=== PATIENT | female | born 1980 | race Caucasian/White ===

== ENCOUNTER 2018-05-28 20:25 | Emergency (ER) | payer SELFPAY ==
[2018-05-28 21:35] LABS: ABSOLUTE BASOPHILS # (AUTO) 0.1 10^3/uL (0.0-0.2); ABSOLUTE EOSINOPHILS # (AUTO) 0.2 10^3/uL (0.0-0.6); BASOPHILS % (AUTO) 0.9 % (0-2); TOTAL CELLS COUNTED % (AUTO) 100 %
[2018-05-28 21:40] LABS: ABSOLUTE LYMPHOCYTES (AUTO) 3.9 10^3/uL (0.5-4.7); ABSOLUTE MONOCYTES (AUTO) 0.5 10^3/uL (0.1-1.4); ABSOLUTE NEUT (AUTO) 4.1 10^3/uL (1.7-8.2); EOSINOPHILS % (AUTO) 2.6 % (0-6); HEMATOCRIT 37.9 % (36.0-47.0); HEMOGLOBIN 13.3 g/dL (12.0-15.5); LYMPHOCYTES % (AUTO) 44.2 % (13-45); MEAN CORPUSCULAR HEMOGLOBIN 33.4 pg (27.0-33.4); MEAN CORPUSCULAR VOLUME 96 fl (80-97); MONOCYTES % (AUTO) 5.9 % (3-13); PLATELET COUNT 341 10^3/uL (150-450); RED BLOOD COUNT 3.97 10^6/uL (3.72-5.28); SEGMENTED NEUTROPHILS % (AUTO) 46.4 % (42-78); WHITE BLOOD COUNT 8.8 10^3/uL (4.0-10.5)
[2018-05-28 21:46] LABS: APPEARANCE,URINE SLIGHTLY-CLOUDY; BILIRUBIN,URINE NEGATIVE (NEGATIVE); COLOR,URINE YELLOW; GLUCOSE, URINE NEGATIVE (NEGATIVE); KETONES,URINE NEGATIVE (NEGATIVE); LEUKOCYTE ESTERASE,URINE TRACE (NEGATIVE); NITRITE,URINE NEGATIVE (NEGATIVE); PROTEIN,URINE NEGATIVE (NEGATIVE); URINE SPECIFIC GRAVITY 1.014; UROBILINOGEN,URINE NEGATIVE mg/dL (<2.0)
[2018-05-28 21:53] LABS: ALANINE AMINOTRANSFERASE 13 U/L (9-52); ALBUMIN 4.4 g/dL (3.5-5.0); ALKALINE PHOSPHATASE 52 U/L (38-126); ANION GAP 13 (5-19); ASPARTATE AMINO TRANSFERASE 17 U/L (14-36); BILIRUBIN,DIRECT 0.2 mg/dL (0.0-0.4); BILIRUBIN,TOTAL 0.4 mg/dL (0.2-1.3); BLOOD UREA NITROGEN 10 mg/dL (7-20); CALCIUM 9.2 mg/dL (8.4-10.2); CARBON DIOXIDE 23 mmol/L (22-30); CHLORIDE 102 mmol/L (98-107); GLUCOSE 78 mg/dL (75-110); POTASSIUM 3.7 mmol/L (3.6-5.0); SODIUM 137.7 mmol/L (137-145); TOTAL PROTEIN 7.4 g/dL (6.3-8.2)
--- NOTE | 2018-05-28 22:43 | RADIOLOGY REPORT (SQ) ---
EXAM DESCRIPTION: US TRANSVAGINAL COMPLETED DATE/TME: 05/28/2018 21:11 CLINICAL HISTORY: 38 years, Female, 10wks, bleeding, cramps, no US COMPARISON: None. TECHNIQUE: Transverse and longitudinal transvaginal sonographic images of the pelvis LIMITATIONS: None. FINDINGS: The uterus measures 8.7 x 5.2 x 6.9 cm. There is an intrauterine gestational sac with yolk sac and pole. However, heart tones were not visualized. Current ultrasound age is 6 weeks 2 days based on mean sac diameter of 1.51 cm. The maternal left ovary is not well seen. The maternal right ovary measures 5 x 3 x 3 cm. Normal flow to the right ovary. No free fluid. No adnexal cyst or mass. IMPRESSION: Intrauterine gestational sac with pole and yolk sac however no detectable heart tones. Findings are concerning for demise. Close obstetric follow-up recommended. Correlate with beta hCG levels. Follow-up ultrasound may also be of benefit copyright 2011 [employer]- All Rights Reserved
--- NOTE | 2018-05-28 22:59 | ER Document Report ---
Entered by SUZANNA QUIÑONES SCRIBE 05/28/182118 Acting as scribe for:MEERA STEPHENSON MD ED General - General Chief Complaint: Vag Bleeding, +preg <12wks Stated Complaint: SPOTTING,CRAMPING Time Seen by Provider: 05/28/18 21:06 Mode of Arrival: Ambulatory Information source: Patient Notes: Patient is a 38 year old female, approximately 10 weeks presents to the emergency department complaining of vaginal bleeding and abdominal cramping onset yesterday. Patient states she began to have vaginal bleeding described as a bright red spotting with stringy clots. She states today, the bleeding turned dark brown and there was an increased amount. Patient describes her abdominal cramps as an intermittent dullness. Her last menstrual period was approximately March 18, 2018. Patient is A2. TRAVEL OUTSIDE OF THE [place] IN LAST 30 DAYS: No - Related Data Allergies/Adverse Reactions: No Known Allergies Allergy (Verified 05/28/18 21:17) Past Medical History - General Information source: Patient - Social History Smoking Status: Current Every Day Smoker Cigarette use (# per day): No - vapes Chew tobacco use (# tins/day): No Smoking Education Provided: No Frequency of alcohol use: None Drug Abuse: None Lives with: Family Family History: Reviewed & Not Pertinent Past Surgical History: Reports: Hx Orthopedic Surgery - ORIF of right ankle 04/2018 Review of Systems - Review of Systems Constitutional: No symptoms reported EENT: No symptoms reported Cardiovascular: No symptoms reported Respiratory: No symptoms reported Gastrointestinal: See HPI, Abdominal pain Female Genitourinary: See HPI, , Vaginal bleeding Musculoskeletal: No symptoms reported Skin: No symptoms reported Hematologic/Lymphatic: No symptoms reported Neurological/Psychological: No symptoms reported -: Yes All other systems reviewed and negative Physical Exam - Vital signs Vitals: Temp Pulse Resp BP Pulse Ox 98.5 F 86 16 115/72 99 05/28/18 20:32 05/28/18 20:32 05/28/18 20:32 05/28/18 20:32 05/28/18 20:32 - Notes Notes: GENERAL: Alert, interacts well. No acute distress. HEAD: Normocephalic, atraumatic. EYES: Pupils equal, round, and reactive to light. Extraocular movements intact. ENT: Oral mucosa moist, tongue midline. NECK: Full range of motion. Supple. Trachea midline. LUNGS: Clear to auscultation bilaterally, no wheezes, rales, or rhonchi. No respiratory distress. HEART: Regular rate and rhythm. No murmurs, gallops, or rubs. ABDOMEN: Soft, non-tender. Non-distended. Bowel sounds present in all 4 quadrants. No guarding, rigidity, or rebound. EXTREMITIES: Moves all 4 extremities spontaneously. Well healed incisions around right ankle, consistent with surgical history. Good sensations. NEUROLOGICAL: Alert and oriented x3. Normal speech. PSYCH: Normal affect, normal mood. SKIN: Warm, dry, normal turgor. No rashes or lesions noted. Course - Re-evaluation Re-evalutation: 05/28/18 22:30 The hCG level is 13,746. - Vital Signs Vital signs: Temp Pulse Resp BP Pulse Ox 98.5 F 86 16 115/72 99 05/28/18 20:32 05/28/18 20:32 05/28/18 20:32 05/28/18 20:32 05/28/18 20:32 - Laboratory Result Diagrams: 05/28/18 21:20 05/28/18 21:20 Laboratory results interpreted by me: 05/28/18 05/28/18 21:20 21:20 Beta HCG, Quant 49826.00 H Urine Blood LARGE H Ur Leukocyte Esterase TRACE H - Diagnostic Test Radiology reviewed: Reports reviewed - 6-week 2-day intrauterine with gestational sac, yolk sac, and pole. heartbeat is not seen. Discharge - Discharge Clinical Impression: with 6 completed weeks gestation, Vaginal bleeding during Condition: Stable Disposition: HOME, SELF-CARE Additional Instructions: Bleeding During Early You have been evaluated for passing blood while . While we take this symptom very seriously, most women with your degree of bleeding will go on to have a perfectly normal baby. At this time, there is no indication that a miscarriage will occur. (A miscarriage occurs when the fetus is abnormal. There is no medicine or treatment to prevent it.) A more serious cause of bleeding is tubal . An ultrasound can show whether the is in the uterus or in the tube. Sometimes in early , no fetus is seen. In this case, careful follow-up, including repeat blood tests and repeat ultrasound, is necessary. You should rest in bed until the symptoms have resolved. Do not douche or have sex for at least a week, or until OK'd by the doctor. Don't use tampons. Call the doctor or return for re-examination if there is an increase in bleeding or cramping, extreme weakness, fainting, new abdominal pain, fever, or passage of tissue. Your ultrasound shows a 6-week 2-day intrauterine , a heartbeat is not seen at this time. You should follow-up with the health department tomorrow for further evaluation. Take Tylenol for cramping if needed. RETURN TO THE EMERGENCY ROOM IF ANY NEW OR WORSENING SYMPTOMS. I personally performed the services described in the documentation, reviewed and edited the documentation which was dictated to the scribe in my presence, and it accurately records my words and actions.
[2018-05-28 23:32] VITALS: BP 109/67
== END 2018-05-28 23:49 | disposition home or self-care (01) ==
LOC: ER 20:25
DX: O46.91 Antepartum hemorrhage, unspecified, first trimester (principal); O26.891 Other specified pregnancy related conditions, first trimester; R10.9 Unspecified abdominal pain; O99.331 Smoking (tobacco) complicating pregnancy, first trimester; Z3A.01 Less than 8 weeks gestation of pregnancy
CPT/HCPCS: 99284; 96372; 86900; 86901; 36415; 86850; 84702; 85025; 80053; 81001; 76817; J2790

== ENCOUNTER 2018-08-07 13:09 | Emergency (ER) | payer MEDICAID ==
--- NOTE | 2018-08-07 13:54 | ER Document Report ---
ED Medical Screen (RME) - General Chief Complaint: Swelling of Lower Extremity Stated Complaint: SWELLING RIGHT LOWER EXTREMITY Time Seen by Provider: 08/07/18 13:43 Mode of Arrival: Ambulatory Information source: Patient Notes: Patient presents emergency department with right lower leg cellulitis. Patient reports she had an open fracture of her tibia in December with hardware repair. She reports Tuesday she went to the [facility]. Denies trauma. Denies open sores. Reports Tuesday she started getting the chills with fever body aches neck pain and noticed erythema around her ankle streaking up her right leg. Is unsure of fever took Excedrin at 1130. Patient right ankle with erythema warmth and streaks noted I have greeted and performed a rapid initial assessment of this patient. A comprehensive ED assessment and evaluation of the patient, analysis of test results and completion of the medical decision making process will be conducted by additional ED providers. Dictation of this chart was performed using voice recognition software; therefore, there may be some unintended grammatical errors. TRAVEL OUTSIDE OF THE [place] IN LAST 30 DAYS: No - Related Data Allergies/Adverse Reactions: No Known Allergies Allergy (Verified 05/28/18 21:17) Past Medical History Renal/ Medical History: Denies: Hx Peritoneal Dialysis Past Surgical History: Reports: Hx Orthopedic Surgery - ORIF of right ankle 04/2018 Physical Exam - Vital signs Vitals: Temp Pulse Resp BP Pulse Ox 99.1 F 95 16 116/70 99 08/07/18 13:12 08/07/18 13:12 08/07/18 13:12 08/07/18 13:12 08/07/18 13:12 Course - Vital Signs Vital signs: Temp Pulse Resp BP Pulse Ox 99.1 F 95 16 116/70 99 08/07/18 13:12 08/07/18 13:12 08/07/18 13:12 08/07/18 13:12 08/07/18 13:12
[2018-08-07 14:33] LABS: ABSOLUTE LYMPHOCYTES (AUTO) 1.3 10^3/uL (0.5-4.7); ABSOLUTE MONOCYTES (AUTO) 0.4 10^3/uL (0.1-1.4); ABSOLUTE NEUT (AUTO) 11.8 10^3/uL (1.7-8.2); BASOPHILS % (AUTO) 0.4 % (0-2); EOSINOPHILS % (AUTO) 0.1 % (0-6); HEMATOCRIT 42.5 % (36.0-47.0); HEMOGLOBIN 14.6 g/dL (12.0-15.5); LYMPHOCYTES % (AUTO) 9.3 % (13-45); MEAN CORPUSCULAR HEMOGLOBIN 32.9 pg (27.0-33.4); MEAN CORPUSCULAR HGB CONC 34.4 g/dL (32.0-36.0); MEAN CORPUSCULAR VOLUME 96 fl (80-97); PLATELET COUNT 317 10^3/uL (150-450); RED BLOOD COUNT 4.45 10^6/uL (3.72-5.28); RED CELL DISTRIBUTION WIDTH 12.9 % (11.5-14.0); SEGMENTED NEUTROPHILS % (AUTO) 87.2 % (42-78); TOTAL CELLS COUNTED % (AUTO) 100 %; WHITE BLOOD COUNT 13.5 10^3/uL (4.0-10.5)
--- NOTE | 2018-08-07 14:43 | RADIOLOGY REPORT (SQ) ---
EXAM DESCRIPTION: ANKLE RIGHT COMPLETE COMPLETED DATE/TIME: 08/07/2018 2:33 pm REASON FOR STUDY: pain, cellulitis, hx fx hardware COMPARISON: None. NUMBER OF VIEWS: Three views. TECHNIQUE: AP, lateral, and oblique radiographic images acquired of the right ankle. LIMITATIONS: None. FINDINGS: MINERALIZATION: Normal. BONES: Distal right fibula internal fixation with metallic plate and five screws. No radiographic e vidence of loosening or infection. Non-united distal fibula fracture. JOINTS: No effusions. SOFT TISSUES: No soft tissue swelling. No foreign body. OTHER: No other significant finding. IMPRESSION: 1. Post surgical changes with hardware distal fibula. Non-united distal fibula fractur e. TECHNICAL DOCUMENTATION: JOB ID: [id number] [employer]- All Rights Reserved Reading location - IP/workstation name: [email or web address]
[2018-08-07 14:54] LABS: ALANINE AMINOTRANSFERASE 17 U/L (9-52); ALBUMIN 4.7 g/dL (3.5-5.0); ALKALINE PHOSPHATASE 58 U/L (38-126); ANION GAP 13 (5-19); ASPARTATE AMINO TRANSFERASE 17 U/L (14-36); BILIRUBIN,DIRECT 0.2 mg/dL (0.0-0.4); BILIRUBIN,TOTAL 0.6 mg/dL (0.2-1.3); BLOOD UREA NITROGEN 10 mg/dL (7-20); CALCIUM 9.3 mg/dL (8.4-10.2); CARBON DIOXIDE 26 mmol/L (22-30); CHLORIDE 101 mmol/L (98-107); GLUCOSE 90 mg/dL (75-110); POTASSIUM 3.8 mmol/L (3.6-5.0); TOTAL PROTEIN 7.9 g/dL (6.3-8.2)
--- NOTE | 2018-08-07 15:57 | ER Document Report ---
ED Extremity Problem, Lower - General Chief Complaint: Swelling of Lower Extremity Stated Complaint: SWELLING RIGHT LOWER EXTREMITY Time Seen by Provider: 08/07/18 13:43 Primary Care Provider: [facility] [Provider Group] - Follow up as needed [facility] [Provider Group] - Follow up as needed Mode of Arrival: Ambulatory Information source: Patient Notes: 38-year-old female presented to ED for complaint of right lower leg cellulitis. She states she had an open fracture of the tibia in December and had surgical repair. She states Tuesday she went to the [facility]. She states Tuesday she started getting chills and fever body aches neck pain and noticed erythema around her ankle streaking up her right leg. Patient states she is not sure if she has had any fever she did take Excedrin at 1130. Patient's right ankle is warm erythematous and tender to palpation. Patient is alert oriented respirations regular and unlabored speaking in full sentences walks with a limp due to pain. TRAVEL OUTSIDE OF THE [place] IN LAST 30 DAYS: No - HPI Patient complains to provider of: Pain, Swelling, Other Location: Ankle - Erythematous, Leg Occurred: Other Onset/Duration: Gradual - Started Tuesday Quality of pain: Achy Severity: Moderate Pain Level: 4 Recent injury: No Associated symptoms: Painful ambulation Exacerbated by: Hanging down, Movement, Walking Relieved by: Nothing - Related Data Allergies/Adverse Reactions: No Known Allergies Allergy (Verified 05/28/18 21:17) Past Medical History - General Information source: Patient - Social History Smoking Status: Current Every Day Smoker - vapor cigerattte Chew tobacco use (# tins/day): No Frequency of alcohol use: Rare Drug Abuse: None 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 [employer] Lives with: Family Family History: Reviewed & Not Pertinent Patient has suicidal ideation: No Patient has homicidal ideation: No - Past Medical History Cardiac Medical History: Reports: None Pulmonary Medical History: Reports: None EENT Medical History: Reports: None Neurological Medical History: Reports: None Endocrine Medical History: Reports: None Renal/ Medical History: Reports: Hx Ovarian Cysts - 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 Malignancy Medical History: Reports: None GI Medical History: Reports: None Musculoskeletal Medical History: Reports Hx Musculoskeletal Trauma Skin Medical History: Reports Hx Cellulitis Psychiatric Medical History: Reports: None Traumatic Medical History: Reports: Hx Fractures - Ankle right Infectious Medical History: Reports: None Past Surgical History: Reports: Hx Gynecologic Surgery - Left ovary and fallopian tube removed for ovarian torsion, Hx Orthopedic Surgery - ORIF of right ankle 04/2018 - Immunizations Immunizations up to date: Yes Hx Diphtheria, Pertussis, Tetanus Vaccination: Yes Review of Systems - Review of Systems Constitutional: No symptoms reported EENT: No symptoms reported Cardiovascular: No symptoms reported Respiratory: No symptoms reported Gastrointestinal: No symptoms reported Genitourinary: No symptoms reported Female Genitourinary: No symptoms reported Musculoskeletal: Leg swelling - Right lower leg pain swelling fever Skin: Change in color - Erythema to right lower leg and ankle Hematologic/Lymphatic: No symptoms reported Neurological/Psychological: No symptoms reported -: Yes All other systems reviewed and negative Physical Exam - Vital signs Vitals: Temp Pulse Resp BP Pulse Ox 99.1 F 95 16 116/70 99 08/07/18 13:12 08/07/18 13:12 08/07/18 13:12 08/07/18 13:12 08/07/18 13:12 Interpretation: Normal - General General appearance: Appears well, Alert - HEENT Head: Normocephalic, Atraumatic Eyes: Normal Pupils: PERRL - Respiratory Respiratory status: No respiratory distress Chest status: Nontender Breath sounds: Normal Chest palpation: Normal - Cardiovascular Rhythm: Regular Heart sounds: Normal auscultation Murmur: No - Abdominal Inspection: Normal Distension: No distension Bowel sounds: Normal Tenderness: Nontender Organomegaly: No organomegaly - Back Back: Normal, Nontender - Extremities General upper extremity: Normal inspection, Nontender, Normal color, Normal ROM, Normal temperature General lower extremity: Normal ROM, Normal weight bearing. No: Ondina's sign Calf: Tender - Pain with and without palpation to the right ankle and lower leg, Other - Erythematous minimal swelling scars from previous ORIF right ankle Ankle: Tender - Erythematous, Edema - Pain to the right ankle with and without palpation - Neurological Neuro grossly intact: Yes Cognition: Normal Orientation: AAOx4 [place] Coma Scale Eye Opening: Spontaneous [place] Coma Scale Verbal: Oriented Jb Coma Scale Motor: Obeys Commands [place] Coma Scale Total: 15 Speech: Normal Motor strength normal: LUE, RUE, LLE, RLE Sensory: Normal - Psychological Associated symptoms: Normal affect, Normal mood - Skin Skin Temperature: Warm Skin Moisture: Dry Skin Color: Normal Course - Re-evaluation Re-evalutation: 08/07/18 16:15 Discussed labs exam and x-rays with Dr. Boss. We will treat patient her r ecommendation with Keflex and Bactrim. She will receive a dose of Bactrim and Rocephin in the emergency patient to follow-up with her primary care and the orthopedic to did the surgery. Patient states she will call the orthopedic surgeon tomorrow at [facility] as they are the ones did the surgery I will also give her a local orthopedic to follow-up with if they cannot see her. She verbalized understanding and agreement with treatment plan and patient was discharged home - Vital Signs Vital signs: Temp Pulse Resp BP Pulse Ox 98.5 F 86 16 117/52 L 100 08/07/18 16:20 08/07/18 16:20 08/07/18 16:20 08/07/18 16:20 08/07/18 16:20 - Laboratory Result Diagrams: 08/07/18 14:02 08/07/18 14:02 Laboratory results interpreted by me: 08/07/18 14:02 WBC 13.5 H Seg Neutrophils % 87.2 H Lymphocytes % 9.3 L Absolute Neutrophils 11.8 H - Diagnostic Test Radiology reviewed: Image reviewed, Reports reviewed Discharge - Discharge Clinical Impression: Cellulitis of right ankle Condition: Stable Disposition: HOME, SELF-CARE Additional Instructions: CELLULITIS: You have an infection of your skin and underlying soft tissues called cellulitis. This is due to bacteria, which can enter through any break in the skin, or even through an irritated hair follicle. Untreated, cellulitis will usually worsen. Antibiotics are required. Usually, warm packs or warm soaks, and elevation of the infected area are recommended. You should start getting better within 24 to 36 hours. Most infections respond quickly to the right medication. Follow-up care is important, however, to check for abscess (boil) formation, unsuspected foreign body, or resistant infection. If you develop fever, chills, or if the area of infection is becoming rapidly more swollen or painful, call the doctor at once. TRIMETHOPRIM-SULFA: You have been given a prescription for trimethoprim-sulfa (TMS, Septra, Bactrim). This is a combination antibiotic of the sulfa class, often used for urinary tract infections, middle ear infections, bronchitis, shigella intestinal infection, and Pneumocystis pneumonia. TMS is usually well-tolerated. Occasional side effects include nausea and decreased appetite. Septra is not recommended for infants less than two months of age. Do not take this medication if you have experienced severe side effects or allergy to sulfa medicine. You should stop this medicine at once and contact your physician if you develop any rash, joint pain, shortness of breath, bruising, or jaundice (yellow color in the skin), or if you develop any other new or unusual symptoms. Cephalexin The antibiotic you've been prescribed is a member of the cephalosporin class. This type of antibiotic covers a wide variety of infections, including those of the skin, lungs, and urinary tract. It's useful for staph infections. This antibiotic is slightly similar to the penicillin family. In rare cases, a person who is allergic to penicillin will also be allergic to this medication. If you have had a severe allergic reaction to penicillin, and have not taken this antibiotic since that time, notify your doctor. Antibiotics which cover many germs ("broad spectrum" antibiotics) are more likely to cause diarrhea or "yeast" infections. Women prone to vaginal yeast problems may suffer an attack after taking this antibiotic. In infants, oral thrush (white spots "stuck" on the cheek) or yeast diaper rash may result. See your doctor if these problems occur. Call at once if you develop itching, hives, shortness of breath, or lightheadedness. Rocephin You have been given an injection of an antibiotic called Rocephin (ceftriaxone). Sometimes the injection must be combined with antibiotic pills. For some infections, such as an uncomplicated ear infection, Rocephin provides all the antibiotic that's needed. The antibiotic will be in your body for about two days. For serious infections, we usually repeat doses of Rocephin daily. Side effects are very unusual following a shot. Women may develop vaginal yeast infections, and babies can get yeast (thrush) in the mouth following the use of antibiotics. Contact your physician if you have symptoms with this medication. Allergy to this antibiotic can result in hives, wheezing, faintness, or itching. If symptoms of allergy occur, call the doctor at once. FOLLOW-UP CARE: If you have been referred to a physician for follow-up care, call the physicians office for an appointment as you were instructed or within the next two days. If you experience worsening or a significant change in your symptoms, notify the physician immediately or return to the Emergency Department at any time for re-evaluation. Take your x-rays and lab results with you to your follow-up appointment with orthopedics. You stated you would call the [facility]opedic [facility] tomorrow. If they cannot see you within the next 24-48 hrs. please follow-up with the local drilling fluids specialist or your primary care. Prescriptions: Cephalexin Monohydrate [Keflex 500 mg Capsule] 500 mg PO QID #28 capsule Sulfamethoxazole/Trimethoprim [Bactrim Ds Tablet] 1 each PO BID #14 tablet Forms: Smoking Cessation Education Referrals: [facility] [Provider Group] - Follow up as needed [facility] [Provider Group] - Follow up as needed
[2018-08-07] MEDS ORDERED: SULFAMETHOXAZOLE/TRIMETHOPRIM 800-160 MG TABLET PO ONE (16:08)
[2018-08-07] MEDS ORDERED: CEFTRIAXONE 1 GM/D5W RTU 1 GM/50 ML RTUPB IV ONE (16:08)
[2018-08-07] MEDS ORDERED: IBUPROFEN 400 MG TABLET PO ONE (16:09)
[2018-08-07 16:24] VITALS: BP 117/52
== END 2018-08-07 17:06 | disposition home or self-care (01) ==
LOC: ER 13:09
DX: L03.115 Cellulitis of right lower limb (principal); F17.290 Nicotine dependence, other tobacco product, uncomplicated
CPT/HCPCS: 99283; 96365; 36415; 87040; 84703; 85025; 80053; 83605; 73610; J3490 ×2; J0696

== ENCOUNTER 2018-09-26 18:20 | Emergency (ER) | payer MEDICAID ==
[2018-09-26 18:26] VITALS: BP 117/74
== END 2018-09-26 22:00 | disposition left against medical advice (07) ==
LOC: ER 18:20
DX: Z53.21 Procedure and treatment not carried out due to patient leaving prior to being seen by health care provider (principal)

== ENCOUNTER → 2019-02-27 | Outpatient (CLI) | payer MEDICAID ==
--- NOTE | 2019-02-27 10:44 | RADIOLOGY REPORT (SQ) ---
EXAM DESCRIPTION: U/S [id number] TRNABD 1GES W/ODOP COMPLETED DATE/TIME: 02/27/2019 9:44 am REASON FOR STUDY: ENCOUNTER FOR SUPRVSN OF NORMAL , FIRST TRIMESTER Z34.81 ENCOUNTER FOR S UPRVSN OF NORMAL , FIRST TRIM COMPARISON: 05/28/2018 TECHNIQUE: Transabdominal static and realtime grayscale images acquired of the pelvis. Additional se lected spectral and color Doppler images recorded. All images stored on PACs. CG: Not available. CLINICAL DATES: 12 weeks 0 days. LIMITATIONS: None. FINDINGS: FETUS: Single Living intrauterine . ULTRASOUND EGA: 10 weeks 6 days. ULTRASOUND LIZZIE: 09/19/2019 EFW: Not applicable less than 20 weeks. CRL: 3.95 cm. FHR: 173 beats per minute. SURVEY: Too early to assess. AMNIOTIC FLUID: Adequate amount. PLACENTA: Not yet developed due to early gestation. SUBCHORIONIC BLEED: Yes SIZE OF BLEED: 9 x 8 x 20 mm. UTERUS: No masses. No anomalies. CERVICAL LENGTH: 2.3 cm. Closed. RIGHT ADNEXA: Normal ovary with normal vascular flow. No adnexal free fluid. No adnexal masses. LEFT ADNEXA: Normal ovary with normal vascular flow. No adnexal free fluid. No adnexal masses. FREE FLUID: None. OTHER: No other significant finding. IMPRESSION: LIVING INTRAUTERINE . EGA 10 WEEKS 6 DAYS. THERE IS A SMALL SUBCHRONIC BLEED. Trimester of : First trimester - 0 to 13 weeks. TECHNICAL DOCUMENTATION: JOB ID: [id number] [employer]- All Rights Reserved Reading location - IP/workstation name: [email or web address]
== END ==
LOC: RAD 09:17
PROVIDERS: ATTEND Midwife
DX: O20.9 Hemorrhage in early pregnancy, unspecified (principal); Z3A.10 10 weeks gestation of pregnancy
CPT/HCPCS: 76801

== ENCOUNTER 2019-07-23 09:00 | Outpatient (CLI) | payer MEDICAID ==
[2019-07-23 09:55] LABS: APPEARANCE,URINE CLEAR; BILIRUBIN,URINE NEGATIVE (NEGATIVE); COLOR,URINE STRAW; GLUCOSE, URINE NEGATIVE (NEGATIVE); KETONES,URINE NEGATIVE (NEGATIVE); LEUKOCYTE ESTERASE,URINE NEGATIVE (NEGATIVE); NITRITE,URINE NEGATIVE (NEGATIVE); PROTEIN,URINE NEGATIVE (NEGATIVE); URINE SPECIFIC GRAVITY 1.003; UROBILINOGEN,URINE NEGATIVE mg/dL (<2.0)
[2019-07-23 10:10] LABS: URINE AMPHETAMINES SCREEN NEGATIVE; URINE BENZODIAZEPINES SCREEN NEGATIVE; URINE COCAINE SCREEN NEGATIVE; URINE MARIJUANA (THC) SCREEN NEGATIVE; URINE METHADONE SCREEN NEGATIVE; URINE PHENCYCLIDINE SCREEN NEGATIVE
--- NOTE | 2019-07-23 10:11 | Non Stress Test Report ---
Non Stress Test Datetime Report Generated by CPN: 07/23/2019 10:10 DEMOGRAPHIC Test Number: 1 EGA NST: 32.6 INDICATION Indication for Study (NST) Other: Labor Check VITAL SIGNS Temperature - NST: 98.6 Pulse - NST: 84 RESP - NST: 18 NBPSYS NST: 114 NBPDIA NST: 62 MONITORING Monitor Explained: Monitor Explained; Test Explained Time on Monitor: 07/23/2019 09:20 Time off Monitor: 07/23/2019 10:08 NST Duration: 48 NST INTERVENTIONS NST Interventions: PO Hydration; Reposition Patient Physician Notified NST: A. Calabrese, CNM BABY A: [id number] BABY A Movement : Present; Decreased Contraction Frequency : 0 FHR Baseline : 145 Accelerations : 15X15 Decelerations : None Variability : Moderate 6-25bpm NST Review: Meets Criteria for Reactive NST NST Review and Verified By : Tabby Camp RNC NST Results: Reactive NST COMMENTS NST Comments: A. Calabrese, cnm on unit and strip reviewed NST REPORT Report Trigger: Send Report
[2019-07-23 10:18] LABS: URINE BARBITURATES SCREEN NEGATIVE
== END 2019-07-23 10:22 | disposition home or self-care (01) ==
LOC: LC 09:00
PROVIDERS: ATTEND Obstetrics & Gynecology
DX: O36.8130 Decreased fetal movements, third trimester, not applicable or unspecified (principal); O09.523 Supervision of elderly multigravida, third trimester; Z3A.32 32 weeks gestation of pregnancy
CPT/HCPCS: 80307; 81001

== ENCOUNTER 2019-08-01 17:42 | Inpatient (IN) | payer MEDICAID ==
[2019-08-01 18:19] LABS: APPEARANCE,URINE SLIGHTLY-CLOUDY; BILIRUBIN,URINE NEGATIVE (NEGATIVE); COLOR,URINE YELLOW; GLUCOSE, URINE NEGATIVE (NEGATIVE); KETONES,URINE NEGATIVE (NEGATIVE); LEUKOCYTE ESTERASE,URINE LARGE (NEGATIVE); NITRITE,URINE NEGATIVE (NEGATIVE); PROTEIN,URINE NEGATIVE (NEGATIVE); UROBILINOGEN,URINE NEGATIVE mg/dL (<2.0)
[2019-08-01 18:28] LABS: URINE AMPHETAMINES SCREEN NEGATIVE; URINE BARBITURATES SCREEN NEGATIVE; URINE BENZODIAZEPINES SCREEN NEGATIVE; URINE COCAINE SCREEN NEGATIVE; URINE METHADONE SCREEN NEGATIVE; URINE PHENCYCLIDINE SCREEN NEGATIVE
[2019-08-01 18:41] LABS: URINE MARIJUANA (THC) SCREEN UNCONFIRMED POSITIVE
[2019-08-01] MEDS ORDERED: PENICILLIN G-K 5 MILLION UNIT VIAL ONE ×2 (18:43→22:53)
[2019-08-01] MEDS ORDERED: AMPICILLIN SOD INJ 2 GM VIAL ONE (18:43)
[2019-08-01] MEDS ORDERED: BETAMET ACET/BETAMET NA INJ 6 MG/1 ML IM ONE (18:44)
[2019-08-01] MEDS ORDERED: AMPICILLIN SOD INJ 2 GM VIAL IV ONE (18:45)
[2019-08-01] MEDS ORDERED: MAGNESIUM SULFATE 4 GM/100 ML RTUPB IV ONE ×3 (18:50→19:11)
[2019-08-01] MEDS ORDERED: PENICILLIN G POTASSIUM 5,000,000 UNIT in DEXTROSE 5%-WATER 100 ML IV ONE (18:53)
[2019-08-01] MEDS ORDERED: BETAMET ACET/BETAMET NA INJ 6 MG/1 ML ONE (18:54)
[2019-08-01] MEDS ORDERED: MAGNESIUM SULFATE 20 GM/500 ML RTUINJ IV ONE (19:11)
[2019-08-01 19:23] LABS: ABSOLUTE BASOPHILS # (AUTO) 0.1 10^3/uL (0.0-0.2); ABSOLUTE EOSINOPHILS # (AUTO) 0.2 10^3/uL (0.0-0.6); ABSOLUTE LYMPHOCYTES (AUTO) 3.5 10^3/uL (0.5-4.7); ABSOLUTE MONOCYTES (AUTO) 0.6 10^3/uL (0.1-1.4); BASOPHILS % (AUTO) 0.5 % (0-2); EOSINOPHILS % (AUTO) 1.4 % (0-6); HEMATOCRIT 32.8 % (36.0-47.0); HEMOGLOBIN 11.9 g/dL (12.0-15.5); LYMPHOCYTES % (AUTO) 22.7 % (13-45); MEAN CORPUSCULAR HEMOGLOBIN 33.9 pg (27.0-33.4); MEAN CORPUSCULAR HGB CONC 36.4 g/dL (32.0-36.0); MEAN CORPUSCULAR VOLUME 93 fl (80-97); MONOCYTES % (AUTO) 3.7 % (3-13); PLATELET COUNT 373 10^3/uL (150-450); RED BLOOD COUNT 3.52 10^6/uL (3.72-5.28); RED CELL DISTRIBUTION WIDTH 12.6 % (11.5-14.0); SEGMENTED NEUTROPHILS % (AUTO) 71.7 % (42-78); TOTAL CELLS COUNTED % (AUTO) 100 %; WHITE BLOOD COUNT 15.4 10^3/uL (4.0-10.5)
[2019-08-01] MEDS: MAGNESIUM SULFATE 20 GM/500 ML RTUINJ IV PRN (19:53)
--- NOTE | 2019-08-01 20:06 | RADIOLOGY REPORT (SQ) ---
EXAM DESCRIPTION: U/S OB LIMITED IMAGES COMPLETED DATE/TIME: 08/01/2019 7:56 pm REASON FOR STUDY: Confirm Presentation COMPARISON: None. TECHNIQUE: Limited transabdominal grayscale ultrasound for evaluation of specific requested obstetri alfredo parameters. LIMITATIONS: None. FINDINGS: CERVICAL LENGTH: 2.7 cm. Closed. SHANTA: 8.6 cm. Cm. FHR: 134 beats per minute. PRESENTATION: Cephalic. PLACENTA: Not assessed ANATOMY: Not assessed OTHER: Intrauterine gestation of 32 weeks 6 days. IMPRESSION: Cephalic lie. Findings as described. Trimester of : Third trimester - 28 weeks to delivery. TECHNICAL DOCUMENTATION: JOB ID: [id number] 2010 [employer]- All Rights Reserved Reading location - IP/workstation name: [email or web address]
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
[2019-08-01] MEDS: PENICILLIN G POTASSIUM 2,500,000 UNIT in DEXTROSE 5%-WATER 50 ML IV SCH (23:01)
[2019-08-02] MEDS ORDERED: PENICILLIN G-K 5 MILLION UNIT VIAL ONE ×2 (03:00→07:00)
[2019-08-02] MEDS: PENICILLIN G POTASSIUM 2,500,000 UNIT in DEXTROSE 5%-WATER 50 ML IV SCH ×3 (03:09→10:56)
[2019-08-02] MEDS ORDERED: MISOPROSTOL 0.2 MG TABLET ONE (04:23)
[2019-08-02] MEDS ORDERED: OXYTOCIN 10 UNIT/ML VIAL ONE (04:23)
[2019-08-02] MEDS ORDERED: LIDOCAINE 1% INJ-PF (10 MG/ML) 30 ML SDV ONE (04:23)
[2019-08-02] MEDS ORDERED: OXYTOCIN/0.9 % SODIUM CHLORIDE 30 UNIT/500 ML RTUINJ ONE (04:24)
[2019-08-02] MEDS ORDERED: FENTANYL/BUPIVACAINE/NS/PF 0 MCG/0 ML RTUINJ EPI ONE (04:55)
[2019-08-02] MEDS ORDERED: EPHEDRINE SULFATE INJ 50 MG/1 ML AMPULE ONE (04:55)
[2019-08-02] MEDS ORDERED: BUPIVACAINE HCL 0.25 % INJ/PF (2.5 MG/1 ML) 30 ML VIAL ONE (04:55)
[2019-08-02] MEDS ORDERED: MAGNESIUM SULFATE 20 GM/500 ML RTUINJ IV ONE (05:40)
[2019-08-02] MEDS: MAGNESIUM SULFATE 20 GM/500 ML RTUINJ IV PRN (05:44)
[2019-08-02] MEDS ORDERED: BETAMET ACET/BETAMET NA INJ 6 MG/1 ML ONE (07:00)
[2019-08-02] MEDS ORDERED: BETAMET ACET/BETAMET NA INJ 6 MG/1 ML IM ONE (07:00)
[2019-08-02] MEDS ORDERED: ACETAMINOPHEN 325 MG TABLET ONE (08:14)
[2019-08-02] MEDS ORDERED: ACETAMINOPHEN 325 MG TABLET PO ONE (08:26)
[2019-08-02] MEDS ORDERED: OXYTOCIN/0.9 % SODIUM CHLORIDE 30 UNIT/500 ML RTUINJ IV PRN ×2 (09:41→12:13)
[2019-08-02 09:46] LABS: CHLAM PCR NOT DETECTED (NOT DETECT)
[2019-08-02] MEDS ORDERED: PSEUDOEPHEDRINE HCL 30 MG TABLET PO PRN (12:13)
[2019-08-02] MEDS ORDERED: PROMETHAZINE HCL 25 MG SUPP.RECT PR PRN (12:13)
[2019-08-02] MEDS ORDERED: MEASLES,MUMPS&RUBELLA VACC/PF 0.5 ML VIAL SUBCUT PRN ×2 (12:13→15:30)
[2019-08-02] MEDS ORDERED: DIPH/PERTUSS(ACELL)/TETANUS VAC/PF 0.5 ML SYR (>=10YO) IM PRN ×2 (12:13→15:30)
[2019-08-02] MEDS ORDERED: DIPHENHYDRAMINE HCL 25 MG CAPSULE PO PRN (12:13)
[2019-08-02] MEDS ORDERED: NA PHOS,M-B/NA PHOS,DI-BA (ADULT) 133 ML ENEMA PR PRN (12:13)
[2019-08-02] MEDS ORDERED: PROMETHAZINE HCL INJ 25 MG/1 ML VIAL IV PRN ×2 (12:13→15:30)
[2019-08-02] MEDS ORDERED: MAGNESIUM HYDROXIDE SUSP 30 ML UDCUP PO PRN (12:13)
[2019-08-02] MEDS ORDERED: GLYCERIN/WITCH HAZEL LEAF 1 EACH MED..WIPE TP PRN (12:13)
[2019-08-02] MEDS ORDERED: PROMETHAZINE HCL 25 MG TABLET PO PRN (12:13)
[2019-08-02] MEDS ORDERED: DIBUCAINE 1% OINTMENT 28 GM TP PRN (12:13)
[2019-08-02] MEDS ORDERED: BENZOCAINE/MENTHOL AEROSOL SPRAY 56 ML TOP PRN (12:13)
[2019-08-02] MEDS ORDERED: IBUPROFEN 800 MG TABLET ONE (12:30)
[2019-08-02] MEDS ORDERED: BUTALB/ACETAMINOPHEN/CAFFEINE 1 TAB EACH PO ONE (13:11)
[2019-08-02] MEDS ORDERED: BUTALB/ACETAMINOPHEN/CAFFEINE 1 TAB EACH ONE (13:14)
--- NOTE | 2019-08-02 13:57 | Delivery Summary ---
Del Sum A-C Datetime Report Generated by CPN: 08/02/2019 13:56 DELIVERY PERSONNEL DELIVERY PERSONNEL: [id number] Delivery Doctor:: Anamika Arriaga CNM Labor and Delivery Nurse:: Kinza Mccord RNcut lace machine operator Nurse:: Fantasma Cee RN Nursery Nurse:: ART Garcia Tech/UNDERGROUND HEAVY EQUIPMENT OPERATOR: Vivian Cobian RN MATERNAL INFORMATION Delivery Anesthesia: None Medications After Delivery: Pitocin Bolus-Please Comment; Cytotec 1000mcg Per Rectum/Vagina Delivery QBL: 610 Delivery QBL Comment: 610 Maternal Complications: Premature Rupture of Membranes Provider Comments: pt quickly progressed to c/c/2 with urge to push, began pushing and quickly delivered a viable baby boy. Baby delivered thru loose nuchal x1 and had vigorous respiratory effort and cry spontaneously at . Baby placed on maternal abdomen, cord allowed to stop pulsating then clamped x2 and cut by pt's daugther (3vc noted, cord blood collected). Large bleeding noted with several large clots. Fundus firm with massage, bleeding stabilized. Vaginal and perineal inspection revealed no lacerations, cytotec 1000mcg placed rectally for phophylaxis. Mother and baby skin to skin prior to transfer to NICU due to gestational age. Pt remains stable at this time. LABOR SUMMARY EDC: 09/19/2019 00:00 No. Babies in Womb: 1 Attempted: No Labor Anesthesia: None LABOR INFORMATION Reason for Induction: Not Applicable Onset of Labor: 08/01/2019 16:00 Complete Dilatation: 08/02/2019 11:45 Oxytocin: Augmentation Group B Beta Strep: Unknown Antibiotics # of Doses: 5 Antibiotics Time of Last Dose: 1100 Name of Antibiotic Given: PCN Steroids Given: Full Course Reason Steroids Not Administered: Indication MEMBRANES Membranes Rupture Method: Artificial Rupture of Membranes: 08/01/2019 16:00 Length of Rupture (hr): 19.90 Amniotic Fluid Color: Clear Amniotic Fluid Amount: Small Amniotic Fluid Odor: Normal STAGES OF LABOR Stage 1 hr: 19 Stage 1 min: 45 Stage 2 hr: 0 Stage 2 min: 9 Stage 3 hr: 0 Stage 3 min: 5 Total Time in Labor hr: 19 Total Time in Labor min: 59 VAGINAL DELIVERY Episiotomy: None Laceration #1: None Laceration Extension #1: N/A Laceration Repair: Not Applicable Sponge Count Correct: N/A Sharps Count Correct: N/A CSECTION DELIVERY Primary Indication: N/A Secondary Indication: N/A CSection Incidence: N/A Labor: N/A Elective: N/A CSection Incision: N/A BABY A INFORMATION Infant Delivery Date/Time: 08/02/2019 11:54 Method of Delivery: Vaginal Nurse Controlled Delivery: No Born in Route : No : N/A Forceps: N/A Vacuum Extraction: N/A Shoulder Dystocia : No PRESENTATION/POSITION BABY A Presentation: Cephalic Cephalic Presentation: Vertex Vertex Position: Left Occipital Anterior Breech Presentation: N/A PLACENTA INFORMATION BABY A Placenta Delivery Time : 08/02/2019 11:59 Placenta Method of Delivery: Spontaneous Placenta Status: Delivered SCORES BABY A Heart Rate 1 min: >100 bpm Resp Effort 1 min: Good Cry Reflex Irritability 1 min: Cough or Sneeze or Pulls Away Muscle Tone 1 min: Active Motion Color 1 min: Blue/Pale Resuscitation Effort 1 min: Tactile Stimulation SCORE 1 MIN: 8 Heart Rate 5 min: >100 bpm Resp Effort 5 min: Good Cry Reflex Irritability 5 min: Cough or Sneeze or Pulls Away Muscle Tone 5 min: Active Motion Color 5 min: Body [place], Extremities Blue Resuscitation Effort 5 min: Tactile Stimulation SCORE 5 MIN: 9 INFANT INFORMATION BABY A Gestational Age at Delivery: 33.1 Gestational Status: - <34 Weeks Infant Outcome : Liveborn Infant Condition : Stable Infant Sex: Male IDENTIFICATION BABY A Verification Date/Time: 08/02/2019 12:20 ID Band Number: [id number] Mother's Name Verified: Yes Infant RN Verifying Infant: CSharif Ramosck, RN ; JSharif Cee RN WEIGHT/LENGTH BABY A Infant Birthweight (gm): 1902 Weight (lb): 4 Weight (oz): 3 Infant Length (in): 17.00 Length (cm): 43.18 CORD INFORMATION BABY A No. Cord Vessels: 3 Nuchal Cord : Around Neck x1, Loose Cord Blood Taken: Yes-For Eval (Mom's Blood Type - or O+) Suction: None ASSESSMENT BABY A Infant Complications: None Physical Findings at Delivery: Within Normal Limits Skin to Skin: Yes Skin to Skin Time (min): 10 Maintenance Electrician/ALS Called : Yes Care By: Olivia Mc RN Transferred To: NICU BABY B INFORMATION : N/A SIGNATURES Assignment: Jes Howell MD Signature: with User ID: [email or web address] : with User ID: Hudson
[2019-08-02] MEDS: DOCUSATE SODIUM 100 MG CAPSULE PO SCH (18:20)
[2019-08-02] MEDS: FERROUS SULFATE 325 MG TABLET PO SCH (18:20)
[2019-08-02] MEDS: ACETAMINOPHEN 325 MG TABLET PO PRN (20:09)
[2019-08-02] MEDS: IBUPROFEN 800 MG TABLET PO SCH (22:29)
[2019-08-02] MEDS: FAMOTIDINE 20 MG TABLET PO SCH (22:29)
[2019-08-03] MEDS ORDERED: CYCLOBENZAPRINE HCL 10 MG TABLET ONE ×3 (00:36→18:19)
[2019-08-03] MEDS ORDERED: IBUPROFEN 800 MG TABLET ONE (00:36)
[2019-08-03] MEDS ORDERED: ACETAMINOPHEN 325 MG TABLET ONE (00:36)
[2019-08-03] MEDS: CYCLOBENZAPRINE HCL 10 MG TABLET PO PRN ×3 (00:45→18:20)
[2019-08-03] MEDS: ACETAMINOPHEN 325 MG TABLET PO PRN (00:45)
[2019-08-03] MEDS: IBUPROFEN 800 MG TABLET PO SCH ×5 (00:54→22:37)
[2019-08-03 06:59] LABS: HEMATOCRIT 26.8 % (36.0-47.0); MEAN CORPUSCULAR HEMOGLOBIN 33.8 pg (27.0-33.4); MEAN CORPUSCULAR HGB CONC 35.6 g/dL (32.0-36.0); MEAN CORPUSCULAR VOLUME 95 fl (80-97); PLATELET COUNT 341 10^3/uL (150-450); RED BLOOD COUNT 2.81 10^6/uL (3.72-5.28); RED CELL DISTRIBUTION WIDTH 12.6 % (11.5-14.0); WHITE BLOOD COUNT 17.9 10^3/uL (4.0-10.5)
[2019-08-03 07:03] LABS: HEMOGLOBIN 9.5 g/dL (12.0-15.5)
--- NOTE | 2019-08-03 09:56 | PDOC PROGRESS REPORT ---
Subjective-OB Progress Note for:: 08/03/19 Subjective: reports bleeding slowing, abd pain controlled. c/o severe headache that is debilitating. flexeril helping and fioricet helped when she received it. discussed restarting fioricet and IVF. she was seen by anesthesia today and is considering blood patch. has limited support Physical Exam (OB) Vital Signs: Temp Pulse Resp BP Pulse Ox 97.6 F 63 18 104/61 99 08/03/19 07:11 08/03/19 07:11 08/03/19 07:11 08/03/19 07:11 08/03/19 07:11 Intake & Output 08/02/19 08/03/19 08/04/19 06:59 06:59 06:59 Intake Total 493 Balance 493 Weight 88 kg - Abdomen Hernia Present: No Fundal Description: Firm Fundal Height: u/u - u/2 - Abdominal Distension: No distension Tenderness: Nontender - Extremities Lower extremities: Ondina's sign - neg Ankle: Normal, Nontender Objective-Diagnostic Laboratory: 08/03/19 06:13 08/03/19 08/03/19 06:13 06:20 WBC 17.9 H RBC 2.81 L Hgb 9.5 L D Hct 26.8 L MCV 95 MCH 33.8 H MCHC 35.6 RDW 12.6 Plt Count 341 Blood Type O NEGATIVE Assessment and Plan(PN) - Assessment and Plan (1) Normal vaginal delivery Is this a current diagnosis for this admission?: Yes (2) spinal headache Is this a current diagnosis for this admission?: Yes (3) delivery Is this a current diagnosis for this admission?: Yes (4) premature rupture of membranes with onset of labor within 24 hours of rupture Is this a current diagnosis for this admission?: Yes - Time Spent with Patient Time with patient: 15-25 minutes Medications reviewed and adjusted accordingly: Yes - Disposition Anticipated Discharge: Home Within: within 48 hours
[2019-08-03] MEDS: DOCUSATE SODIUM 100 MG CAPSULE PO SCH ×2 (10:23→18:10)
[2019-08-03] MEDS: FERROUS SULFATE 325 MG TABLET PO SCH ×2 (10:23→18:11)
[2019-08-03] MEDS: BUTALB/ACETAMINOPHEN/CAFFEINE 1 TAB EACH PO PRN ×3 (10:23→22:35)
[2019-08-03] MEDS: SENNOSIDES/DOCUSATE 8.6-50 MG 1 EACH TABLET PO SCH (10:23)
[2019-08-03] MEDS: PRENATAL VITAMIN W DHA CAPSULE PO SCH (10:24)
[2019-08-03] MEDS: FAMOTIDINE 20 MG TABLET PO SCH ×2 (10:24→22:38)
[2019-08-03] MEDS ORDERED: RINGERS SOLUTION,LACTATED 1,000 ML IV ONE (10:47)
[2019-08-04] MEDS ORDERED: CYCLOBENZAPRINE HCL 10 MG TABLET ONE (02:39)
[2019-08-04] MEDS: BUTALB/ACETAMINOPHEN/CAFFEINE 1 TAB EACH PO PRN ×2 (02:44→06:46)
[2019-08-04] MEDS: CYCLOBENZAPRINE HCL 10 MG TABLET PO PRN (02:44)
[2019-08-04] MEDS: IBUPROFEN 800 MG TABLET PO SCH ×3 (06:44→22:07)
[2019-08-04] MEDS: FERROUS SULFATE 325 MG TABLET PO SCH ×2 (10:05→17:32)
[2019-08-04] MEDS: DOCUSATE SODIUM 100 MG CAPSULE PO SCH ×2 (10:05→17:28)
[2019-08-04] MEDS: PRENATAL VITAMIN W DHA CAPSULE PO SCH (10:05)
[2019-08-04] MEDS: SENNOSIDES/DOCUSATE 8.6-50 MG 1 EACH TABLET PO SCH (10:05)
[2019-08-04] MEDS: FAMOTIDINE 20 MG TABLET PO SCH ×2 (10:05→22:07)
--- NOTE | 2019-08-04 10:48 | PDOC PROGRESS REPORT ---
Subjective-OB Progress Note for:: 08/04/19 Subjective: states bleeding is slowing and abd pain is controlled. reports worsening THOMPSON that increases when she sits up and even worse when she stands. states she is unable to visit with her son in NICU for more than 30 mins and usually works from home but is still unable to work. requesting a myelogram. Physical Exam (OB) Vital Signs: Temp Pulse Resp BP Pulse Ox 97.6 F 73 17 106/73 100 08/03/19 19:39 08/03/19 19:39 08/03/19 19:39 08/03/19 19:39 08/03/19 19:39 - Abdomen Description: Soft Hernia Present: No Fundal Description: Firm, Midline Fundal Height: u/u - u/2 - Abdominal Distension: No distension Tenderness: Nontender - Extremities Lower extremities: Ondina's sign - neg Calf: Normal, Nontender Objective-Diagnostic Laboratory: 08/03/19 06:13 08/03/19 06:20 Blood Type O NEGATIVE Assessment and Plan(PN) - Assessment and Plan (1) Normal vaginal delivery Is this a current diagnosis for this admission?: Yes (2) spinal headache Is this a current diagnosis for this admission?: Yes (3) delivery Is this a current diagnosis for this admission?: Yes (4) premature rupture of membranes with onset of labor within 24 hours of rupture Is this a current diagnosis for this admission?: Yes - Time Spent with Patient Time with patient: Less than 15 minutes Medications reviewed and adjusted accordingly: Yes - Disposition Anticipated Discharge: Home Within: within 24 hours - dr Samaniego called and informed of pt complaints of headache worsening. she had motrin at 0644, fioricet at 0646 and flexeril at 0244 today. Also informed that she is requesting a myelogram. Dr Samaniego states it is not a spinal headache. states he will come see her again.
--- NOTE | 2019-08-04 12:23 | Progress Note ---
Provider Note Provider Note: blood patch done, pt feeling better. c/w dr rosa. plan to monitor overnight and discharge to [facility] tomorrow.
[2019-08-05] MEDS: BUTALB/ACETAMINOPHEN/CAFFEINE 1 TAB EACH PO PRN (03:35)
[2019-08-05] MEDS: CYCLOBENZAPRINE HCL 10 MG TABLET PO PRN (03:35)
[2019-08-05] MEDS: IBUPROFEN 800 MG TABLET PO SCH (06:03)
[2019-08-05 07:05] LABS: HEMATOCRIT 26.8 % (36.0-47.0); HEMOGLOBIN 9.4 g/dL (12.0-15.5); MEAN CORPUSCULAR HEMOGLOBIN 33.8 pg (27.0-33.4); MEAN CORPUSCULAR HGB CONC 35.2 g/dL (32.0-36.0); MEAN CORPUSCULAR VOLUME 96 fl (80-97); PLATELET COUNT 329 10^3/uL (150-450); RED BLOOD COUNT 2.79 10^6/uL (3.72-5.28); RED CELL DISTRIBUTION WIDTH 12.8 % (11.5-14.0); WHITE BLOOD COUNT 12.9 10^3/uL (4.0-10.5)
[2019-08-05 07:31] LABS: ABSOLUTE LYMPHOCYTES# (MANUAL) 4.4 10^3/uL (0.5-4.7); ABSOLUTE MONOCYTES # (MANUAL) 0.4 10^3/uL (0.1-1.4); BASOPHILS % (MANUAL) 0 % (0-2); EOSINOPHILS % (MANUAL) 1 % (0-6); LYMPHOCYTES % (MANUAL) 34 % (13-45); MONOCYTES % (MANUAL) 3 % (3-13); PLATELET COMMENT ADEQUATE; RBC MORPHOLOGY COMMENT NORMO-CYTIC/CHROMIC; SEGMENTED NEUTROPHILS % (MAN) 62 % (42-78); TOTAL CELLS COUNTED 100
[2019-08-05 08:05] VITALS: BP 109/57
--- NOTE | 2019-08-05 10:24 | PDOC DISCHARGE SUMMARY ---
Impression - Admit/DC Date/PCP Admission Date/Primary Care Provider: 08/01/19 18:47 JAIR BALES MD Discharge Date: 08/05/19 - Discharge Diagnosis (1) Normal vaginal delivery Is this a current diagnosis for this admission?: Yes (2) spinal headache Is this a current diagnosis for this admission?: Yes (3) delivery Is this a current diagnosis for this admission?: Yes (4) premature rupture of membranes with onset of labor within 24 hours of rupture Is this a current diagnosis for this admission?: Yes - Additional Information Discharge Diet: Regular Discharge Activity: Balance Activity w/Rest, Pelvic Rest Referrals: JAIR BALES MD [Primary Care Provider] - Prescriptions: Butalb/Acetaminophen/Caffeine [Fioricet (50-325-40 mg) Tablet] 2 tab PO Q4HP PRN #40 each PRN Reason: Cyclobenzaprine HCl [Flexeril 10 mg Tablet] 10 mg PO Q8HP PRN #30 tablet PRN Reason: Ibuprofen [Motrin 800 mg Tablet] 800 mg PO Q8HP PRN #60 tablet PRN Reason: Home Medications: Calcium Citrate 1,600 mg PO DAILY 07/23/19 Cholecalciferol (Vitamin D3) [Vitamin D3 3000 unit Tablet] 3,000 unit PO DAILY 07/23/19 Magnesium 400 mg PO DAILY 07/23/19 Pnv 76/Iron,Gluc/Folic/Dss/Dha [Citranatal Dha Pack] 1 tab PO DAILY 07/23/19 Butalb/Acetaminophen/Caffeine [Fioricet (50-325-40 mg) Tablet] 2 tab PO Q4HP PRN #40 each 08/05/19 Cyclobenzaprine HCl [Flexeril 10 mg Tablet] 10 mg PO Q8HP PRN #30 tablet 08/05/19 Ferrous Sulfate [Feosol 325 mg Tablet] 325 mg PO BID tablet 08/05/19 Ibuprofen [Motrin 800 mg Tablet] 800 mg PO Q8HP PRN #60 tablet 08/05/19 Results Laboratory Results: WBC 12.9 10^3/uL (4.0-10.5) H 08/05/19 06:37 RBC 2.79 10^6/uL (3.72-5.28) L 08/05/19 06:37 Hgb 9.4 g/dL (12.0-15.5) L 08/05/19 06:37 Hct 26.8 % (36.0-47.0) L 08/05/19 06:37 MCV 96 fl (80-97) 08/05/19 06:37 MCH 33.8 pg (27.0-33.4) H 08/05/19 06:37 MCHC 35.2 g/dL (32.0-36.0) 08/05/19 06:37 RDW 12.8 % (11.5-14.0) 08/05/19 06:37 Plt Count 329 10^3/uL (150-450) 08/05/19 06:37 Lymph % (Auto) Not Reportable 08/05/19 06:37 [place] % (Auto) Not Reportable 08/05/19 06:37 Eos % (Auto) Not Reportable 08/05/19 06:37 Baso % (Auto) Not Reportable 08/05/19 06:37 Absolute Neuts (auto) Not Reportable 08/05/19 06:37 Absolute Lymphs (auto) Not Reportable 08/05/19 06:37 Absolute Monos (auto) Not Reportable 08/05/19 06:37 Absolute Eos (auto) Not Reportable 08/05/19 06:37 Absolute Basos (auto) Not Reportable 08/05/19 06:37 Total Counted 100 08/05/19 06:37 Seg Neutrophils % Not Reportable 08/05/19 06:37 Seg Neuts % (Manual) 62 % (42-78) 08/05/19 06:37 Lymphocytes % (Manual) 34 % (13-45) 08/05/19 06:37 Monocytes % (Manual) 3 % (3-13) 08/05/19 06:37 Eosinophils % (Manual) 1 % (0-6) 08/05/19 06:37 Basophils % (Manual) 0 % (0-2) 08/05/19 06:37 Abs Neuts (Manual) 8.0 10^3/uL (1.7-8.2) 08/05/19 06:37 Abs Lymphs (Manual) 4.4 10^3/uL (0.5-4.7) 08/05/19 06:37 Abs Monocytes (Manual) 0.4 10^3/uL (0.1-1.4) 08/05/19 06:37 Absolute Eos (Manual) 0.1 10^3/uL (0.0-0.6) 08/05/19 06:37 Abs Basophils (Manual) 0.0 10^3/uL (0.0-0.2) 08/05/19 06:37 Platelet Comment ADEQUATE 08/05/19 06:37 RBC Morph Comment NORMO-CYTIC/CHROMIC 08/05/19 06:37 Urine Color YELLOW 08/01/19 17:58 Urine Appearance SLIGHTLY-CLOUDY 08/01/19 17:58 Urine pH 7.0 (5.0-9.0) 08/01/19 17:58 Ur Specific [place] 1.010 08/01/19 17:58 Urine Protein NEGATIVE mg/dL (NEGATIVE) 08/01/19 17:58 Urine Glucose (UA) NEGATIVE mg/dL (NEGATIVE) 08/01/19 17:58 Urine Ketones NEGATIVE mg/dL (NEGATIVE) 08/01/19 17:58 Urine Blood SMALL (NEGATIVE) H 08/01/19 17:58 Urine Nitrite NEGATIVE (NEGATIVE) 08/01/19 17:58 Urine Bilirubin NEGATIVE (NEGATIVE) 08/01/19 17:58 Urine Urobilinogen NEGATIVE mg/dL (<2.0) 08/01/19 17:58 Ur Leukocyte Esterase LARGE (NEGATIVE) H 08/01/19 17:58 Urine WBC (Auto) 37 /HPF 08/01/19 17:58 Urine RBC (Auto) 1 /HPF 08/01/19 17:58 Urine Bacteria (Auto) TRACE /HPF 08/01/19 17:58 Squamous Epi Cells Auto 2 /HPF 08/01/19 17:58 Urine Mucus (Auto) RARE /LPF 08/01/19 17:58 Urine Ascorbic Acid NEGATIVE (NEGATIVE) 08/01/19 17:58 Membranes Rupture POSITIVE (NEGATIVE) H 08/01/19 17:58 Urine Opiates Screen NEGATIVE 08/01/19 17:58 Urine Methadone Screen NEGATIVE 08/01/19 17:58 Ur Barbiturates Screen NEGATIVE 08/01/19 17:58 Ur Phencyclidine Scrn NEGATIVE 08/01/19 17:58 Ur Amphetamines Screen NEGATIVE 08/01/19 17:58 U Benzodiazepines Scrn NEGATIVE 08/01/19 17:58 Urine Cocaine Screen NEGATIVE 05/27/20 17:58 U Marijuana (THC) Screen UNCONFIRMED POSITIVE 08/01/19 17:58 RPR NONREACTIVE (NONREACTIVE) 08/01/19 19:11 Chlamydia DNA (PCR) NOT DETECTED (NOT DETECT) 08/02/19 07:53 N.gonorrhoeae DNA (PCR) NOT DETECTED (NOT DETECT) 08/02/19 07:53 Blood Type O NEGATIVE 08/03/19 06:20 Blood Type Confirm O NEGATIVE 08/01/19 19:11 Antibody Screen POSITIVE 08/01/19 19:11 Antibody Identification RHOGAM INDUCED ANTI-D 08/01/19 19:11 Screen NEGATIVE 08/03/19 06:20 Crossmatch See Detail 08/01/19 19:11 Impressions: Obstetrics Ultrasound 08/01/19 00:00 IMPRESSION: Cephalic lie. Findings as described. Trimester of : Third trimester - 28 weeks to delivery. Plan Plan of Treatment: follow up in 4 weeks at [facility] for post check
== END 2019-08-05 10:51 | disposition home or self-care (01) | DRG 807 ==
LOC: LC 17:42 → LR 18:47 → 2S 20:13 → LR 22:42 → 2S 08-02 14:12
PROVIDERS: ADMIT Obstetrics & Gynecology Gynecology; ATTEND Obstetrics & Gynecology Gynecology
PROC: 10907ZC Drainage of Amniotic Fluid, Therapeutic from Products of Conception, Via Natural or Artificial Opening (ICD-10-PCS; 2019-08-01)
PROC: 10E0XZZ Delivery of Products of Conception, External Approach (ICD-10-PCS; principal; 2019-08-02)
PROC: 3E0R3GC Introduction of Other Therapeutic Substance into Spinal Canal, Percutaneous Approach (ICD-10-PCS; 2019-08-04)
PROC: 3E0234Z Introduction of Serum, Toxoid and Vaccine into Muscle, Percutaneous Approach (ICD-10-PCS; 2019-08-04)
DX: O60.14X0 Preterm labor third trimester with preterm delivery third trimester, not applicable or unspecified (principal); Z37.0 Single live birth; O26.893 Other specified pregnancy related conditions, third trimester; O89.4 Spinal and epidural anesthesia-induced headache during the puerperium; O99.334 Smoking (tobacco) complicating childbirth; O69.81X0 Labor and delivery complicated by cord around neck, without compression, not applicable or unspecified; F17.210 Nicotine dependence, cigarettes, uncomplicated; Z67.41 Type O blood, Rh negative; Z3A.33 33 weeks gestation of pregnancy
CPT/HCPCS: 1967; 36415; 76815; 80307; 80349; 81001; 84112; 85025; 85027; 85461; 86592; 86850; 86870; 86900; 86901; 86920; 86922; 87491; 87591; 88307; 94760; G0480; J0290; J0702; J2540; J2590; J2790; J3010; J3475; J3490; J7060; J7120

== ENCOUNTER 2019-08-06 09:27 | Emergency (ER) | payer MEDICAID ==
[2019-08-06] MEDS: NORMAL SALINE 1000 ML 1,000 ML IV PRN ×2 (10:01→11:11)
[2019-08-06] MEDS ORDERED: KETOROLAC TROMETHAMINE INJ/PF 30 MG/1 ML SDV IV ONE (10:54)
--- NOTE | 2019-08-06 11:29 | ER Document Report ---
ED General - General Chief Complaint: Headache Stated Complaint: HEADACHE Time Seen by Provider: 08/06/19 10:49 Primary Care Provider: ADRIAN SANTIAGO FNP-C [Primary Care Provider] - Follow up as needed Notes: 39-year-old lady complaining of ongoing headache. This happened soon after she delivered a baby last week with an epidural. It was initially positional but she had a blood patch on Tuesday and now it is not. She is hydrating and taking Tylenol but is not taking Motrin. She has no vomiting photophobia neck pain or fever. She did not have preeclampsia before delivery and has had normal blood pressure since. I spoke with her anesthesiology provider here at [facility] who states that she probably did not need the blood patch and was very unlikely to have a CSF leak at that time, he also states that the procedure was successful. He recommends conservative management and discharge. Marcial Molly TRAVEL OUTSIDE OF THE [place] 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 Denies: Hx Peritoneal Dialysis Musculoskeletal Medical History: Reports Hx Musculoskeletal Trauma Skin Medical History: Reports Hx Cellulitis Psychiatric Medical History: Reports: Hx Depression Traumatic Medical History: Reports: Hx Fractures - Ankle right Past Surgical History: Reports: Hx Gynecologic Surgery - Left ovary and fallopian tube removed for ovarian torsion, Hx Orthopedic Surgery - ORIF of right ankle 04/2018 - Immunizations Immunizations up to date: Yes Hx Diphtheria, Pertussis, Tetanus Vaccination: Yes Review of Systems - Review of Systems Notes: REVIEW OF SYSTEMS GEN: Denies fever, chills, weight loss ENT: Denies sore throat, nasal discharge, ear pain EYES: Denies blurry vision, eye pain, discharge CV: Denies chest pain, palpitations, edema RESP: Denies cough, shortness of breath, wheezing GI: Denies abdominal pain, nausea, vomiting, diarrhea MSK: Denies joint pain/swelling, edema, SKIN: Denies rash, skin lesions LYMPH: Denies swollen glands/lymph nodes NEURO: Neck focal weakness or numbness, dizziness PSYCH: Denies depression, suicidal or homicidal ideation PHYSICAL EXAMINATION General: No acute distress, well-nourished Head: Atraumatic, normocephalic ENT: Mouth normal, oropharynx moist, no exudates or tonsillar enlargement Eyes: Conjunctiva normal, pupils equal, lids normal Neck: No JVD, supple, no guarding CVS: Normal rate, regular rhythm, no murmurs Resp: No resp distress, equal and normal breath sounds bilaterally GI: Nondistended, soft, no tenderness to palpation, no rebound or guarding Ext: No deformities, no edema, normal range of motion in upper and lower ext Back: No CVA or midline TTP Skin: No rash, warm Lymphatic: No lymphadeopathy noted Neuro: Awake, alert. Face symmetric. GCS 15. Symmetric speech fluent normal sensation and strength in all 4 extremities. Physical Exam - Vital signs Vitals: Temp Pulse Resp BP Pulse Ox 98.3 F 96 18 111/74 98 08/06/19 09:33 08/06/19 09:33 08/06/19 09:33 08/06/19 09:33 08/06/19 09:33 Course - Re-evaluation Re-evalutation: 08/06/19 11:53 Ongoing headache in a patient with history of tension headaches and a recent delivery. No signs of preeclampsia no neuro deficits to suggest bleed or hemorrhage related to any or intrapartum issues, doubt stroke. No hypertension Discussed with anesthesia. Unlikely to be continuous CSF leak. Will treat with fluids Toradol and discharged home. No clinical evidence of meningitis nor do I think she needs a CT or a tap today. I have discussed with the patient there likely diagnosis, aftercare plan, follow-up plans and my usual and customary return precautions. They verbalized understanding of this. - Vital Signs Vital signs: Temp Pulse Resp BP Pulse Ox 98.3 F 96 18 111/74 98 08/06/19 09:52 08/06/19 09:33 08/06/19 09:33 08/06/19 09:33 08/06/19 09:33 Discharge - Discharge Clinical Impression: Tension headache Condition: Good Disposition: HOME, SELF-CARE Instructions: Headache ([facility]) Additional Instructions: As we discussed your headache is likely from tension and stress rather than a cerebrospinal fluid leak since you have already had a blood patch. I spoke with your anesthesiologist and they agree that this should be fixed. I am going to treat your pain here and I would like you to be vigilant about hydration and medication at home and call your [facility] for follow-up. Referrals: ADRIAN SANTIAGO, QUINCY-C [Primary Care Provider] - Follow up as needed
[2019-08-06 12:13] VITALS: BP 119/71
== END 2019-08-06 12:25 | disposition home or self-care (01) ==
LOC: ER 09:27
DX: O90.9 Complication of the puerperium, unspecified (principal); G44.209 Tension-type headache, unspecified, not intractable
CPT/HCPCS: 99283; 96361; 96374; J1885; J7030